=== PATIENT | female | born 1955 | race Caucasian/White ===

== ENCOUNTER 2018-10-30 11:22 | Emergency (ER) | payer OTHER ==
[~2018-10-30] VITALS: Ht 162.6 cm; Wt 50.8 kg
[2018-10-30 11:22] VITALS: BP_SYST 142
[2018-10-30 13:23] VITALS: BP_SYST 124
== END 2018-10-30 13:24 | disposition home or self-care (01) ==
LOC: SED 11:22
DX: R05 Cough (principal); R03.0 Elevated blood-pressure reading, without diagnosis of hypertension; Z88.2 Allergy status to sulfonamides; Z90.89 Acquired absence of other organs
CPT/HCPCS: 71045; 99283